=== PATIENT | female | born 1995 | race Caucasian/White ===

== ENCOUNTER 2020-02-20 17:16 | Emergency (ER) | payer BC, OTHER ==
[2020-02-20 18:47] LABS: HEMOGLOBIN 16.2 gm/dl (12.3-15.3); RED BLOOD COUNT 5.29 M/UL (4.00-5.10); WHITE BLOOD COUNT 20.2 K/UL (4.5-11.0)
[2020-02-20 19:07] LABS: BUN/CREATININE RATIO 12 (0-10)
[2020-02-20] MEDS ORDERED: CEFPODOXIME PR200 MG PO (20:42)
[2020-02-20] MEDS ORDERED: ZOFRAN ODT 4 MG4 MG PO (20:42)
[2020-02-20] MEDS ORDERED: LODINE CAP 300300 MG PO (20:42)
== END 2020-02-20 21:09 | disposition home or self-care (01) ==
LOC: ER1 17:16
PROVIDERS: Physician Assistant
DX: N10 Acute pyelonephritis (principal); R10.816 Epigastric abdominal tenderness; Z20.822 Contact with and (suspected) exposure to COVID-19
CPT/HCPCS: 80053; 81001; 83690; 83735; 84703; 85025; 87086; 96365; 96375; 96376; 99284; J0696; J1650; J2405; U0002